=== PATIENT | female | born 1975 | race African-American/Black ===

== ENCOUNTER 2017-01-03 20:16 | Emergency (ER) | payer MEDICAID, OTHER ==
[~2017-01-03] VITALS: Ht 172.7 cm; Wt 150.0 kg
[~2017-01-03 20:16] MED LIST: BUSP15TA3 PO; IBUP-1510 PO; RISP4TAB16 PO; [UNRECOGNIZED DRUG - CODE] IM
[2017-01-04 00:44] LABS: BASOPHILS % 0.7 % (0.0-2.0); EOSINOPHILS % 1.5 % (0.0-5.0); HEMATOCRIT. 36.7 % (36.0-48.0); HEMOGLOBIN. 12.1 g/dL (12.0-16.0); LYMPHOCYTES % 31.6 % (20.0-50.0); MEAN CORPUSCULAR HEMOGLOBIN 31.5 pg (28.0-32.0); MEAN CORPUSCULAR VOLUME 95.2 fL (81.0-99.0); MEAN PLATELET VOLUME 7.5 fl (7.4-10.4); MONOCYTES % 11.5 % (2.0-8.0); NEUTROPHILS % 54.7 % (40.0-76.0); PLATELET 318 x1000/uL (130-400); RED BLOOD CELL COUNT 3.85 mill/uL (4.2-5.4); RED CELL DISTRIBUTION WIDTH 15.5 % (11.6-14.6)
[2017-01-04 00:48] LABS: CHLORIDE 101 mEq/L (98-107)
[2017-01-04 00:57] LABS: CARBON DIOXIDE 30 mEq/L (21-32); ETHANOL BLOOD < 10 mg/dL
[2017-01-04 01:19] LABS: CLARITY URINE CLOUDY (CLEAR); COLOR URINE YELLOW (YELLOW); GLUCOSE URINE NEGATIVE (NEGATIVE); KETONES URINE TRACE (NEGATIVE); LEUKOCYTE ESTERASE URINE NEGATIVE (NEGATIVE); NITRITE URINE NEGATIVE (NEGATIVE); OCCULT BLOOD URINE 3+ (NEGATIVE); PH URINE 6.5 (4.5-8.0); PROTEIN URINE TRACE (NEGATIVE); SPECIFIC GRAVITY URINE 1.033 (1.005-1.030)
[2017-01-04 01:47] LABS: *AMPHETAMINES SCREEN URINE NEGATIVE (NEGATIVE); *BARBITURATES SCREEN URINE NEGATIVE (NEGATIVE); *BENZODIAZEPINES SCREEN URINE NEGATIVE (NEGATIVE); *COCAINE SCREEN URINE NEGATIVE (NEGATIVE); METHADONE URINE SCREEN NEGATIVE (NEGATIVE); OPIATES URINE SCREEN NEGATIVE (NEGATIVE); PHENCYCLIDINE URINE SCREEN NEGATIVE (NEGATIVE)
[2017-01-04 01:50] LABS: CANNABINOID URINE SCREEN PRESUMTIVE POSITIVE (NEGATIVE)
[2017-01-04] MEDS ORDERED: LORAZEPAM 0.5MG TABLET PO ONE (12:45)
[2017-01-04] MEDS ORDERED: OLANZAPINE 5MG TABLET ODT PO ONE (12:45)
[2017-01-04 14:57] VITALS: BP 148/82
== END 2017-01-04 15:10 ==
LOC: ER 20:16
DX: R45.851 Suicidal ideations (principal); F32.9 Major depressive disorder, single episode, unspecified; F31.9 Bipolar disorder, unspecified; F20.9 Schizophrenia, unspecified; F17.200 Nicotine dependence, unspecified, uncomplicated
CPT/HCPCS: 36415; 80053; 80305; 80307; 80329; 81001; 81025; 85025; 99284; G0482; Z7610

== ENCOUNTER 2017-07-31 18:11 | Emergency (ER) | payer OTHER ==
[~2017-07-31] VITALS: Ht 167.6 cm; Wt 114.0 kg
[~2017-07-31 18:11] MED LIST changes: -IBUP-1510 PO; +IBUP-2030 PO
[2017-07-31] MEDS ORDERED: SODIUM CHLORIDE 0.9% 1,000 ML IV ONE (19:18)
[2017-07-31] MEDS ORDERED: DIPHENHYDRAMINE 50MG/ML VIAL IM STA (19:18)
[2017-07-31] MEDS ORDERED: HALOPERIDOL LACTATE 5MG/ML VIAL IM STA (19:18)
[2017-07-31] MEDS ORDERED: LORAZEPAM 2MG/ML CPJ IM ONE (19:30)
[2017-07-31 19:42] VITALS: BP 150/88
== END 2017-07-31 19:42 | disposition left against medical advice (07) ==
LOC: ER 18:11
DX: F31.9 Bipolar disorder, unspecified (principal); F20.9 Schizophrenia, unspecified
CPT/HCPCS: 99284; J7030; Z7610; J1200; J1630; J2060

== ENCOUNTER 2017-12-01 23:11 | Emergency (ER) | payer OTHER ==
[~2017-12-01] VITALS: Ht 172.7 cm; Wt 128.5 kg
[2017-12-02 02:30] LABS: CHLORIDE 104 mEq/L (98-107)
[2017-12-02 02:33] LABS: ETHANOL BLOOD < 10 mg/dL
[2017-12-02 03:05] LABS: CLARITY URINE CLOUDY (CLEAR); COLOR URINE DARK YELLOW (YELLOW); KETONES URINE NEGATIVE (NEGATIVE); LEUKOCYTE ESTERASE URINE NEGATIVE (NEGATIVE); NITRITE URINE NEGATIVE (NEGATIVE); OCCULT BLOOD URINE NEGATIVE (NEGATIVE); PH URINE 5.5 (4.5-8.0); PROTEIN URINE NEGATIVE (NEGATIVE); SPECIFIC GRAVITY URINE 1.035 (1.005-1.030)
[2017-12-02 03:14] LABS: BASOPHILS % 0.5 % (0.0-2.0); EOSINOPHILS % 2.3 % (0.0-5.0); HEMATOCRIT. 35.3 % (36.0-48.0); LYMPHOCYTES % 31.1 % (20.0-50.0); MEAN CORPUSCULAR HEMOGLOBIN 32.5 pg (28.0-32.0); MEAN CORPUSCULAR VOLUME 95.3 fL (81.0-99.0); MEAN PLATELET VOLUME 7.7 fl (7.4-10.4); MONOCYTES % 9.2 % (2.0-8.0); NEUTROPHILS % 56.9 % (40.0-76.0); PLATELET 384 x1000/uL (130-400); RED CELL DISTRIBUTION WIDTH 15.2 % (11.6-14.6)
[2017-12-02 03:18] LABS: *BARBITURATES SCREEN URINE NEGATIVE (NEGATIVE); *BENZODIAZEPINES SCREEN URINE NEGATIVE (NEGATIVE); METHADONE URINE SCREEN NEGATIVE (NEGATIVE); OPIATES URINE SCREEN NEGATIVE (NEGATIVE)
[2017-12-02 03:21] LABS: *AMPHETAMINES SCREEN URINE PRESUMTIVE POSITIVE (NEGATIVE)
[2017-12-02 03:22] LABS: *COCAINE SCREEN URINE PRESUMTIVE POSITIVE (NEGATIVE); CANNABINOID URINE SCREEN PRESUMTIVE POSITIVE (NEGATIVE); PHENCYCLIDINE URINE SCREEN PRESUMTIVE POSITIVE (NEGATIVE)
[2017-12-02 07:40] VITALS: BP 130/80
== END 2017-12-02 16:59 | disposition home or self-care (01) ==
LOC: ER 12-02 01:33
DX: T43.622A Poisoning by amphetamines, intentional self-harm, initial encounter (principal); T40.5X2A Poisoning by cocaine, intentional self-harm, initial encounter; T40.7X2A Poisoning by cannabis (derivatives), intentional self-harm, initial encounter; T40.992A Poisoning by other psychodysleptics [hallucinogens], intentional self-harm, initial encounter; G92 Toxic encephalopathy; F20.9 Schizophrenia, unspecified; F17.200 Nicotine dependence, unspecified, uncomplicated; Y92.89 Other specified places as the place of occurrence of the external cause
CPT/HCPCS: 36415; 80053; 80305; 80307; 80329; 81003; 81025; 85025; 99284; G0482

== ENCOUNTER 2018-01-03 23:02 | Emergency (ER) | payer OTHER | END 2018-01-04 00:30 | disposition left against medical advice (07) | LOC: ER 01-04 00:30 | DX: R44.0 Auditory hallucinations (principal); Z76.0 Encounter for issue of repeat prescription; Z53.21 Procedure and treatment not carried out due to patient leaving prior to being seen by health care provider ==

== ENCOUNTER 2018-01-04 02:21 | Emergency (ER) | payer OTHER, MEDICAID ==
[~2018-01-04] VITALS: Ht 172.7 cm; Wt 126.0 kg
[2018-01-04 06:04] LABS: CHLORIDE 106 mEq/L (98-107)
[2018-01-04 06:06] LABS: BASOPHILS % 0.5 % (0.0-2.0); EOSINOPHILS % 2.2 % (0.0-5.0); HEMATOCRIT. 34.9 % (36.0-48.0); HEMOGLOBIN. 11.7 g/dL (12.0-16.0); LYMPHOCYTES % 34.8 % (20.0-50.0); MEAN CORPUSCULAR HEMOGLOBIN 32.1 pg (28.0-32.0); MEAN CORPUSCULAR VOLUME 95.9 fL (81.0-99.0); MEAN PLATELET VOLUME 7.5 fl (7.4-10.4); MONOCYTES % 10.1 % (2.0-8.0); NEUTROPHILS % 52.4 % (40.0-76.0); PLATELET 335 x1000/uL (130-400); RED BLOOD CELL COUNT 3.64 mill/uL (4.2-5.4); RED CELL DISTRIBUTION WIDTH 15.2 % (11.6-14.6)
[2018-01-04 06:07] LABS: ETHANOL BLOOD < 10 mg/dL
[2018-01-04 06:11] LABS: HCG SCREEN NEGATIVE
[2018-01-04 09:10] LABS: CLARITY URINE CLEAR (CLEAR); COLOR URINE YELLOW (YELLOW); KETONES URINE TRACE (NEGATIVE); LEUKOCYTE ESTERASE URINE NEGATIVE (NEGATIVE); NITRITE URINE NEGATIVE (NEGATIVE); OCCULT BLOOD URINE NEGATIVE (NEGATIVE); PROTEIN URINE NEGATIVE (NEGATIVE); SPECIFIC GRAVITY URINE 1.032 (1.005-1.030)
[2018-01-04 10:28] LABS: *BARBITURATES SCREEN URINE NEGATIVE (NEGATIVE); *BENZODIAZEPINES SCREEN URINE NEGATIVE (NEGATIVE)
[2018-01-04 10:29] LABS: METHADONE URINE SCREEN NEGATIVE (NEGATIVE); OPIATES URINE SCREEN NEGATIVE (NEGATIVE)
[2018-01-04 10:38] LABS: *AMPHETAMINES SCREEN URINE PRESUMTIVE POSITIVE (NEGATIVE); *COCAINE SCREEN URINE PRESUMTIVE POSITIVE (NEGATIVE)
[2018-01-04 10:39] LABS: CANNABINOID URINE SCREEN PRESUMTIVE POSITIVE (NEGATIVE); PHENCYCLIDINE URINE SCREEN PRESUMTIVE POSITIVE (NEGATIVE)
[2018-01-04] MEDS: QUETIAPINE FUMARATE 25MG TABLET PO SCH (13:29)
[2018-01-04] MEDS ORDERED: LORAZEPAM 2MG/ML CPJ IM ONE (13:30)
[2018-01-04] MEDS ORDERED: DIPHENHYDRAMINE 50MG/ML VIAL IM ONE (13:30)
[2018-01-04] MEDS ORDERED: HALOPERIDOL LACTATE 5MG/ML VIAL IM ONE (13:30)
[2018-01-05] MEDS: QUETIAPINE FUMARATE 25MG TABLET PO SCH (09:58)
[2018-01-06 09:44] VITALS: BP 128/68
== END 2018-01-06 09:47 ==
LOC: ER 02:21
DX: F23 Brief psychotic disorder (principal); F15.10 Other stimulant abuse, uncomplicated; F14.10 Cocaine abuse, uncomplicated; F12.10 Cannabis abuse, uncomplicated; D64.9 Anemia, unspecified; R73.9 Hyperglycemia, unspecified; F31.9 Bipolar disorder, unspecified; F20.9 Schizophrenia, unspecified; F16.10 Hallucinogen abuse, uncomplicated; F17.200 Nicotine dependence, unspecified, uncomplicated
CPT/HCPCS: 36415; 80048; 80305; 80307; 80329; 81003; 84703; 85025; 96372; 99285; G0482; J1200; J1630; J2060

== ENCOUNTER 2018-06-26 10:51 | Emergency (ER) | payer MEDICAID, OTHER ==
[~2018-06-26] VITALS: Ht 162.6 cm; Wt 95.0 kg
[2018-06-26 10:56] VITALS: BP 132/70
== END 2018-06-26 15:37 | disposition left against medical advice (07) ==
LOC: ER 11:05
DX: Z53.21 Procedure and treatment not carried out due to patient leaving prior to being seen by health care provider (principal)

== ENCOUNTER 2018-08-31 08:26 | Emergency (ER) | payer OTHER ==
[~2018-08-31] VITALS: Ht 172.7 cm; Wt 140.0 kg
[2018-08-31] MEDS ORDERED: PREDNISONE 20MG TABLET PO ONE (10:45)
[2018-08-31] MEDS ORDERED: DIPHENHYDRAMINE 25MG CAPSULE PO ONE (10:45)
[2018-08-31] MEDS ORDERED: FAMOTIDINE 20MG TABLET PO ONE (10:45)
[2018-08-31] MEDS ORDERED: LORAZEPAM 1MG TABLET PO ONE (11:45)
[2018-08-31] MEDS ORDERED: LORAZEPAM 2MG/ML CPJ IM STA (14:22)
[2018-08-31] MEDS ORDERED: OLANZAPINE 10 MG/VIAL IM STA (14:22)
[2018-08-31 14:27] LABS: BASOPHILS % 0.6 % (0.0-2.0); EOSINOPHILS % 1.8 % (0.0-5.0); HEMATOCRIT. 38.7 % (36.0-48.0); HEMOGLOBIN. 12.7 g/dL (12.0-16.0); LYMPHOCYTES % 14.9 % (20.0-50.0); MEAN CORPUSCULAR HEMOGLOBIN 31.8 pg (28.0-32.0); MEAN PLATELET VOLUME 7.9 fl (7.4-10.4); MONOCYTES % 3.3 % (2.0-8.0); NEUTROPHILS % 79.4 % (40.0-76.0); PLATELET 344 x1000/uL (130-400); RED BLOOD CELL COUNT 3.99 mill/uL (4.2-5.4); RED CELL DISTRIBUTION WIDTH 15.5 % (11.6-14.6)
[2018-08-31 14:29] LABS: CHLORIDE 105 mEq/L (98-107)
[2018-08-31 14:37] LABS: ETHANOL BLOOD < 10 mg/dL
[2018-08-31 15:45] VITALS: BP 114/64
[2018-08-31 16:11] LABS: CLARITY URINE CLEAR (CLEAR); COLOR URINE YELLOW (YELLOW); KETONES URINE TRACE (NEGATIVE); LEUKOCYTE ESTERASE URINE NEGATIVE (NEGATIVE); NITRITE URINE NEGATIVE (NEGATIVE); OCCULT BLOOD URINE NEGATIVE (NEGATIVE); PROTEIN URINE NEGATIVE (NEGATIVE); SPECIFIC GRAVITY URINE 1.025 (1.005-1.030); UROBILINOGEN URINE 0.2 E.U./dL (0.2-1.0)
[2018-08-31 16:33] LABS: *BARBITURATES SCREEN URINE NEGATIVE (NEGATIVE); *BENZODIAZEPINES SCREEN URINE NEGATIVE (NEGATIVE); *COCAINE SCREEN URINE NEGATIVE (NEGATIVE)
[2018-08-31 16:34] LABS: CANNABINOID URINE SCREEN NEGATIVE (NEGATIVE); OPIATES URINE SCREEN NEGATIVE (NEGATIVE)
[2018-08-31 16:36] LABS: *AMPHETAMINES SCREEN URINE NEGATIVE (NEGATIVE); METHADONE URINE SCREEN NEGATIVE (NEGATIVE)
[2018-08-31 16:52] LABS: PHENCYCLIDINE URINE SCREEN PRESUMTIVE POSITIVE (NEGATIVE)
== END 2018-08-31 17:45 | disposition left against medical advice (07) ==
LOC: ER 08:30
DX: R41.82 Altered mental status, unspecified (principal); T40.995A Adverse effect of other psychodysleptics [hallucinogens], initial encounter; F31.9 Bipolar disorder, unspecified; E11.9 Type 2 diabetes mellitus without complications; F20.9 Schizophrenia, unspecified; F15.10 Other stimulant abuse, uncomplicated; F17.290 Nicotine dependence, other tobacco product, uncomplicated; Z59.0 Homelessness; Z98.890 Other specified postprocedural states; Z79.899 Other long term (current) drug therapy; Y92.89 Other specified places as the place of occurrence of the external cause
CPT/HCPCS: 36415; 80053; 80305; 81003; 81025; 85025; 87186; 96372; 99284; J3490; J7512; Q0163; Z7610; J2060

== ENCOUNTER 2018-11-06 21:03 | Emergency (ER) | payer OTHER ==
[~2018-11-06] VITALS: Ht 175.3 cm; Wt 199.0 kg
[2018-11-06 23:21] LABS: CLARITY URINE CLEAR (CLEAR); COLOR URINE YELLOW (YELLOW); KETONES URINE NEGATIVE (NEGATIVE); LEUKOCYTE ESTERASE URINE NEGATIVE (NEGATIVE); NITRITE URINE NEGATIVE (NEGATIVE); OCCULT BLOOD URINE NEGATIVE (NEGATIVE); PH URINE 5.5 (4.5-8.0); PROTEIN URINE NEGATIVE (NEGATIVE); SPECIFIC GRAVITY URINE 1.026 (1.005-1.030); UROBILINOGEN URINE 0.2 E.U./dL (0.2-1.0)
[2018-11-06 23:25] LABS: BASOPHILS % 0.8 % (0.0-2.0); EOSINOPHILS % 1.5 % (0.0-5.0); HEMATOCRIT. 35.6 % (36.0-48.0); HEMOGLOBIN. 11.6 g/dL (12.0-16.0); MEAN CORPUSCULAR HEMOGLOBIN 31.8 pg (28.0-32.0); MEAN CORPUSCULAR VOLUME 97.1 fL (81.0-99.0); MEAN PLATELET VOLUME 7.3 fl (7.4-10.4); MONOCYTES % 8.6 % (2.0-8.0); NEUTROPHILS % 60.1 % (40.0-76.0); PLATELET 350 x1000/uL (130-400); RED BLOOD CELL COUNT 3.67 mill/uL (4.2-5.4); RED CELL DISTRIBUTION WIDTH 15.4 % (11.6-14.6)
[2018-11-06 23:30] LABS: *COCAINE SCREEN URINE NEGATIVE (NEGATIVE)
[2018-11-06 23:31] LABS: CHLORIDE 104 mEq/L (98-107)
[2018-11-06 23:31] LABS: *AMPHETAMINES SCREEN URINE NEGATIVE (NEGATIVE); *BARBITURATES SCREEN URINE NEGATIVE (NEGATIVE); CANNABINOID URINE SCREEN NEGATIVE (NEGATIVE); METHADONE URINE SCREEN NEGATIVE (NEGATIVE); OPIATES URINE SCREEN NEGATIVE (NEGATIVE)
[2018-11-06 23:32] LABS: *BENZODIAZEPINES SCREEN URINE NEGATIVE (NEGATIVE)
[2018-11-06 23:36] LABS: ETHANOL BLOOD < 10 mg/dL
[2018-11-06 23:40] LABS: CREATINE KINASE 156 IU/L (26-192)
[2018-11-06] MEDS ORDERED: SODIUM CHLORIDE 0.9% 1,000 ML IV ONE (23:45)
[2018-11-06 23:48] LABS: PHENCYCLIDINE URINE SCREEN PRESUMTIVE POSITIVE (NEGATIVE)
[2018-11-07 18:35] VITALS: BP 126/75
== END 2018-11-07 18:38 | disposition home or self-care (01) ==
LOC: ER 21:03
DX: F19.10 Other psychoactive substance abuse, uncomplicated (principal); R45.851 Suicidal ideations; Z79.899 Other long term (current) drug therapy
CPT/HCPCS: 36415; 71045; 80053; 80305; 80307; 80320; 80329; 81003; 82550; 83605; 85025; 93005; 99284; J7030; Z7610; G0480